=== PATIENT | female | born 1985 | race African-American/Black ===

== ENCOUNTER 2023-06-10 12:36 | Emergency (ER) | payer BC, SELFPAY ==
[2023-06-10] MEDS ORDERED: Dexamethasone 4 MG TAB ONE (13:43)
== END 2023-06-10 14:14 | disposition home or self-care (01) ==
LOC: MADERS 12:36
DX: J06.9 Acute upper respiratory infection, unspecified (principal)
CPT/HCPCS: 87081; 87430; 87804; 99283; J8540